=== PATIENT | male | born 1985 | race African-American/Black ===

== ENCOUNTER 2017-07-15 11:06 | Emergency (ER) | payer OTHER ==
[~2017-07-15] VITALS: Ht 170.2 cm; Wt 113.8 kg
[~2017-07-15 11:06] MED LIST: FLEXERIL10 MG PO; MOTRIN600 MG PO; MOTRIN800 MG PO; NAPROSYN500 MG PO
[2017-07-15] MEDS ORDERED: ROBITUSSIN100 MG/5 M PO (14:31)
[2017-07-15] MEDS ORDERED: ZOFRAN4 MG PO (14:31)
[2017-07-15] MEDS ORDERED: PEN-VEE K,VEET500 MG PO (14:31)
[2017-07-15 14:51] VITALS: BP 169/102
== END 2017-07-15 14:52 | disposition home or self-care (01) ==
LOC: EME 11:06
DX: J02.0 Streptococcal pharyngitis (principal); I10 Essential (primary) hypertension; F17.200 Nicotine dependence, unspecified, uncomplicated
CPT/HCPCS: 87651 90; 99281; 99284